=== PATIENT | male | born 1945 | race Hispanic/Latino ===

== ENCOUNTER → 2020-05-17 | Outpatient (CLI) | payer OTHER | END | disposition home or self-care (01) | LOC: SHCH 11:14 | PROVIDERS: ATTEND Internal Medicine Cardiovascular Disease | DX: I65.23 Occlusion and stenosis of bilateral carotid arteries (principal); I25.10 Atherosclerotic heart disease of native coronary artery without angina pectoris | CPT/HCPCS: 93880 ==

== ENCOUNTER → 2022-02-21 | Outpatient (CLI) | payer OTHER ==
[2022-02-21 12:54] LABS: CREATININE 2.8 mg/dL (0.5-1.5); POTASSIUM 4.3 mmol/L (3.5-5.1)
== END | disposition home or self-care (01) ==
LOC: LAB 08:12
PROVIDERS: ATTEND Internal Medicine Cardiovascular Disease
DX: I10 Essential (primary) hypertension (principal); E78.5 Hyperlipidemia, unspecified
CPT/HCPCS: 36415; 80048; 80061

== ENCOUNTER → 2022-08-22 | Outpatient (CLI) | payer OTHER | END | disposition home or self-care (01) | LOC: SHCH 10:34 | PROVIDERS: ATTEND Internal Medicine Cardiovascular Disease | DX: G45.1 Carotid artery syndrome (hemispheric) (principal); F50.89 Other specified eating disorder | CPT/HCPCS: 93880 ==

== ENCOUNTER 2023-09-18 22:57 | Emergency (ER) | payer OTHER ==
[~2023-09-18] VITALS: Ht 177.8 cm; Wt 83.9 kg
[2023-09-19] MEDS ORDERED: IBUP-1493 PO (01:33)
[2023-09-19 02:30] VITALS: BP 135/74; PULSE 78; RESP 18; O2SAT 99
== END 2023-09-19 02:32 | disposition home or self-care (01) ==
LOC: EDH 22:57
DX: M16.11 Unilateral primary osteoarthritis, right hip (principal); M48.00 Spinal stenosis, site unspecified
CPT/HCPCS: 72131; 72190; 72192; 73552

== ENCOUNTER 2024-05-11 09:34 | Emergency (ER) | payer OTHER ==
[~2024-05-11] VITALS: Ht 185.4 cm; Wt 97.1 kg
[2024-05-11 09:34] VITALS: BP 162/81; PULSE 82; RESP 20; TEMP 99.4; O2SAT 97
[~2024-05-11 09:34] MED LIST: IBUP-1493 PO
[2024-05-11 10:53] LABS: BASOPHILS # (AUTO) 0.06 K/uL (0.00-0.20); EOSINOPHILS # (AUTO) 0.46 K/uL (0.00-0.70); EOSINOPHILS % (AUTO) 7.7 % (0.0-8.0); HEMATOCRIT 30.4 % (42-54); IMMATURE GRANULOCYTE ABSOLUTE 0.02 K/uL (0-1); LYMPHOCYTES # (AUTO) 1.3 K/uL (1.0-4.8); LYMPHOCYTES % (AUTO) 21.2 % (21.0-51.0); MEAN CORPUSCULAR HEMOGLOBIN 31.7 pg (27.0-33.0); MEAN CORPUSCULAR HGB CONC 32.6 g/dL (32.0-36.0); MEAN CORPUSCULAR VOLUME 97.4 fL (79-99); MONOCYTES # (AUTO) 0.4 K/uL (0.1-1.0); MONOCYTES % (AUTO) 6.2 % (3.0-13.0); NEUTROPHILS # (AUTO) 3.8 K/uL (1.8-7.7); NEUTROPHILS % (AUTO) 63.6 % (40.0-77.0); PLATELET COUNT (AUTO) 157 K/uL (130-400); RED BLOOD CELL COUNT(AUTO) 3.12 MIL/uL (4.50-6.20); RED CELL DISTRIBUTION WIDTH 14.1 % (11.0-15.5)
[2024-05-11 10:57] LABS: BILIRUBIN,URINE NEGATIVE (NEGATIVE); COLOR,URINE LIGHT-YELLOW (YELLOW); GLUCOSE, URINE (UA) 150 mg/dL (NEGATIVE); KETONES,URINE NEGATIVE (NEGATIVE); LEUKOCYTE ESTERASE ,URINE 250 Leu/uL (NEGATIVE); NITRATE,URINE NEGATIVE (NEGATIVE); OCCULT BLOOD,URINE SMALL (NEGATIVE); PROTEIN,URINE 300 mg/dL (NEGATIVE); UROBILINOGEN,URINE 0.2 mg/dL (0.2-1.0)
[2024-05-11 10:58] LABS: ADD UA MICROSCOPIC YES
[2024-05-11 11:01] LABS: HEMOGLOBIN A1C 5.1 % (4.0-6.0)
[2024-05-11 11:02] LABS: CREATININE 6.5 mg/dL (0.5-1.3); POTASSIUM 4.1 mmol/L (3.5-5.1)
[2024-05-11 11:06] LABS: BACTERIA,URINE RARE /HPF (None Seen); NON-SQUAMOUS EPITHELIAL CELL 1 /HPF (0-2); SQUAMOUS EPITHELIAL CELL,UR RARE /HPF (0-2); WBC,URINE 26-50 /HPF (0-1)
[2024-05-11 11:07] LABS: ALBUMIN 2.9 g/dL (3.5-5.0); BILIRUBIN,TOTAL 0.5 mg/dL (0.2-1.0); PHOSPHORUS 4.9 mg/dL (2.5-4.9); TOTAL PROTEIN, SERUM 6.6 g/dL (6.0-8.3)
[2024-05-11 11:25] LABS: CHLORIDE,URINE RANDOM 81 mmol/L (110-250); CREATININE,URINE RANDOM 82.45 mg/dL (30-135); POTASSIUM,URINE RANDOM 31 mmol/L (25-125); SODIUM,URINE RANDOM 79 mmol/l (40-220)
[2024-05-11 11:59] LABS: PROTEIN,URINE RANDOM 600.2 mg/dL (0-11.9)
[2024-05-11 12:34] LABS: APPEARANCE,URINE CLEAR (CLEAR)
[2024-05-11] MEDS ORDERED: CEPH500T PO (13:12)
[2024-05-11] MEDS ORDERED: CEPH500B PO (13:28)
[2024-05-11] MEDS: cefTRIAXone 1G VIAL IVPB ONE (13:33)
== END 2024-05-11 13:44 | disposition home or self-care (01) ==
LOC: EDH 09:34
DX: I12.0 Hypertensive chronic kidney disease with stage 5 chronic kidney disease or end stage renal disease (principal); N18.5 Chronic kidney disease, stage 5; N39.0 Urinary tract infection, site not specified; I25.10 Atherosclerotic heart disease of native coronary artery without angina pectoris; Z79.1 Long term (current) use of non-steroidal anti-inflammatories (NSAID); Z90.5 Acquired absence of kidney; Z98.890 Other specified postprocedural states
CPT/HCPCS: 99285; 96374; 76770; 83036; 84156; 82570 ×2; 80053; 85025; 87086; 83935; 82043; 81001; 36415; 80051; J0696; 80069